=== PATIENT | male | born 1985 | race Caucasian/White ===

== ENCOUNTER 2018-12-13 07:04 | Emergency (ER) | payer OTHER ==
[~2018-12-13] VITALS: Ht 162.6 cm; Wt 80.0 kg
[~2018-12-13 07:04] MED LIST: FAMO-96 PO; HYDR-3605 PO; HYDR-4011 PO; ONDA4TAB14 PO; ONDA4TAB35 PO; PANT40TA3 PO
[2018-12-13 07:06] VITALS: Ht 162.6 cm; Wt 80.0 kg
[2018-12-13] MEDS ORDERED: ONDANSETRON 4 MG INJ IV STA ×2 (07:20→08:44)
[2018-12-13] MEDS ORDERED: KETOROLAC 30 MG INJ IV STA (07:20)
[2018-12-13] MEDS ORDERED: SOD CHLORIDE 0.9% 1,000 ML IV STA (07:20)
[2018-12-13] MEDS ORDERED: FAMOTIDINE 20 MG INJ IV STA (07:20)
[2018-12-13] MEDS ORDERED: morphine 4 MG/ML VIAL IV STA (07:20)
[2018-12-13] MEDS ORDERED: morphine 2 MG INJ IV STA (07:43)
[2018-12-13] MEDS ORDERED: SOD CHLORIDE 0.9% 100 ML ONE (08:14)
[2018-12-13] MEDS ORDERED: IOHEXOL 300MG/ML 150 ML BTL ONE (08:14)
[2018-12-13] MEDS ORDERED: DICYCLOMINE 10 MG CAP PO ONE (08:30)
[2018-12-13] MEDS ORDERED: HYDROmorphONE 2 MG/ML SYG IV STA (08:43)
[2018-12-13 09:48] VITALS: BP 115/64; PULSE 76; RESP 18
--- NOTE | 2018-12-13 10:49 | ERD ---
ER Documentation Chief Complaint Chief Complaint ap,vomiting seen at urgent care yesterday, dx gastritis HPI 33-year-old male presenting with abdominal pain and vomiting with severe abdominal pain x2 days. Patient has a long history of gastritis and states this feels like a similar flare but his pain is persistent and not resolving. Patient takes Zofran Protonix and omeprazole. He had normal urination and normal bowel movements with no bloody stool. Denies any allergies to medications. Medical history gastritis. Surgical history denies. Social history smokes marijuana ROS All systems reviewed and are negative except as per history of present illness. Medications Home Meds Active Scripts Famotidine* (Pepcid*) 20 Mg Tablet, 20 MG PO BID for 4 Days, #30 TAB Prov:BRYANNA HASKINS PA-C 12/13/18 Hydrocodone/Acetaminophen ([place] 5-325 Tablet) 1 Each Tablet, 1 TAB PO Q6H PRN for PAIN, #7 TAB Prov:BRYANNA HASKINS PA-C 12/13/18 Hydrocodone Bit/Acetaminophen (Anexsia 7.5/325 Mg Tablet) 1 Tab Tablet, 1 TAB PO Q6H PRN for PAIN LEVEL 4-6 for 1 Day, TAB Prov:BUD STROUD MD 10/13/15 Ondansetron Hcl* (Zofran* ODT) 4 mg -ODT Tab.disper, 4 MG PO Q6 PRN for NAUSEA AND/OR VOMITING, #30 TAB Prov:TUCKER CRUZ MD 01/07/15 Reported Medications Pantoprazole* (Protonix*) 40 Mg Tablet.dr, 40 MG PO DAILY, TAB 01/07/15 Allergies Allergies: Coded Allergies: No Known Allergy (Unverified , 01/07/15) PMhx/Soc Medical and Surgical Hx: pt denies Surgical Hx History of Surgery: No Anesthesia Reaction: No Hx Neurological Disorder: No Hx Respiratory Disorders: No Hx Cardiac Disorders: No Hx Psychiatric Problems: No Hx Miscellaneous Medical Probl: Yes (gastritis) Hx Alcohol Use: Yes Hx Substance Use: No Hx Tobacco Use: No Smoking Status: Never smoker FmHx Family History: No diabetes, No coronary disease, No other Physical Exam Vitals Vital Signs Date Temp Pulse Resp B/P (MAP) Pulse Ox O2 O2 Flow FiO2 Time Delivery Rate 12/13/18 98.1 76 18 115/64 98 Room Air 09:48 (81) 12/13/18 97.8 89 18 128/74 99 07:06 (92) Physical Exam GENERAL: The patient is well-appearing, well-nourished, in no acute distress HEENT: Atraumatic. Conjunctivae are pink. Pupils equal, round, and reactive to light. There is no scleral icterus. Tympanic membranes clear bilaterally. Oropharynx clear. CHEST: Clear to auscultation bilaterally. There are no rales, wheezes or rhonc hi. HEART: Regular rate and rhythm. No murmurs, clicks, rubs or gallops. ABDOMEN: Normal active bowel sounds. No distention. Generalized tenderness to palpation with no distention or organomegaly Result Diagram: 12/13/1835 12/13/18 0735 Results 24 hrs Laboratory Tests Test 12/13/18 07:35 White Blood Count 5.8 10^3/ul Red Blood Count 5.15 10^6/ul Hemoglobin 16.4 g/dl Hematocrit 48.7 % Mean Corpuscular Volume 94.6 fl Mean Corpuscular Hemoglobin 31.8 pg Mean Corpuscular Hemoglobin Concent 33.7 g/dl Red Cell Distribution Width 11.8 % Platelet Count 229 10^3/UL Mean Platelet Volume 9.9 fl Immature Granulocytes % 0.300 % Neutrophils % 51.1 % Lymphocytes % 30.7 % Monocytes % 9.5 % Eosinophils % 7.5 % Basophils % 0.9 % Nucleated Red Blood Cells % 0.0 /100WBC Immature Granulocytes # 0.020 10^3/ul Neutrophils # 3.0 10^3/ul Lymphocytes # 1.8 10^3/ul Monocytes # 0.6 10^3/ul Eosinophils # 0.4 10^3/ul Basophils # 0.1 10^3/ul Nucleated Red Blood Cells # 0.0 10^3/ul Sodium Level 140 mmol/L Potassium Level 4.0 mmol/L Chloride Level 102 mmol/L Carbon Dioxide Level 31 mmol/L Anion Gap 7 Blood Urea Nitrogen 15 mg/dl Creatinine 0.98 mg/dl Est Glomerular Filtrat Rate mL/min > 60 mL/min Glucose Level 112 mg/dl Calcium Level 10.0 mg/dl Total Bilirubin 0.6 mg/dl Direct Bilirubin 0.00 mg/dl Indirect Bilirubin 0.6 mg/dl Aspartate Amino Transf (AST/SGOT) 28 IU/L Alanine Aminotransferase (ALT/SGPT) 25 IU/L Alkaline Phosphatase 61 IU/L Total Protein 8.3 g/dl Albumin 4.9 g/dl Globulin 3.40 g/dl Albumin/Globulin Ratio 1.44 Lipase 418 U/L Current Medications Medications Dose Sig/Lino Start Time Status Last (Trade) Ordered Route PRN Stop Time Admin Dose Reason Admin Sodium 1,000 ml @ Q1H STAT 12/13/18 DC 12/13/18 Chloride 1,000 mls/hr IV 07:20 07:29 12/13/18 08:19 Morphine 4 mg ONCE STAT 12/13/18 DC 12/13/18 Sulfate IV 07:20 07:28 (morphine) 12/13/18 07:21 Ondansetron 4 mg ONCE STAT 12/13/18 DC 12/13/18 HCl (Zofran IV 07:20 07:28 Inj) 12/13/18 07:21 Famotidine 20 mg ONCE STAT 12/13/18 DC 12/13/18 (Pepcid Iv) IV 07:20 07:28 12/13/18 07:21 Ketorolac 30 mg ONCE STAT 12/13/18 DC 12/13/18 Tromethamine IV 07:20 07:28 (Toradol) 12/13/18 07:21 Morphine 2 mg ONCE STAT 12/13/18 DC 12/13/18 Sulfate IV 07:43 07:51 (morphine) 12/13/18 07:44 IV Flush 10 ml STK-MED 12/13/18 DC 12/13/18 (NS 10 ml) ONCE .ROUTE 08:14 08:30 12/13/18 08:15 Sodium 100 ml @ ud STK-MED 12/13/18 DC 12/13/18 Chloride ONCE .ROUTE 08:14 08:30 12/13/18 08:15 Iohexol 150 ml STK-MED 12/13/18 DC 12/13/18 (Omnipaque ONCE .ROUTE 08:14 08:30 300mg/ ml) 12/13/18 08:15 Dicyclomine 10 mg ONCE ONCE 12/13/18 DC 12/13/18 HCl PO 08:30 08:17 (Bentyl) 12/13/18 08:31 1 mg ONCE STAT 12/13/18 DC 12/13/18 Hydromorphone IV 08:43 08:48 HCl 12/13/18 08:44 (Dilaudid) Ondansetron 2 mg ONCE STAT 12/13/18 DC 12/13/18 HCl (Zofran IV 08:44 08:48 Inj) 12/13/18 08:45 Procedures/MDM DIAGNOSTIC IMAGING REPORT Patient: PEYMAN CHAWLA : 1985 Age: 33 Sex: M MR #: [id number] DOS: 12/13/18 0720 Ordering MD: JON HASKINS PA-C Location: [facility] Room/Bed: PROCEDURE: CT Abdomen and pelvis with contrast. CLINICAL INDICATION: Abdominal pain TECHNIQUE: CT scan of the abdomen and pelvis with contrast was performed on a multidetector high-resolution CT scan. The patient was scanned following the uncomplicated intravenous administration of 100 ml Omnipaque-300. Coronal and sagittal reformatted images were obtained from the axial source images. Standard CT of the abdomen pelvis with contrast protocols were performed. The total exam CTDI equals 14.51 mGy and the total exam DLP equals 939.61 mGy- cm. One or more of the following dose reduction techniques were used: - Automated exposure control. - Adjustment of the mA and/or kV according to patient size. Use of iterative reconstruction technique. Dicom images are available COMPARISON: CT abdomen pelvis 01/07/2015 and abdominal ultrasound same day FINDINGS: Stomach, small bowel, large bowel and appendix are unremarkable. Kidneys are normal in size without calcified calculi hydronephrosis or intra renal masses bilaterally. No ureteral calcified calculi or dilatation. Partially contracted otherwise unremarkable urinary bladder. Prostate unremarkable. No evidence of intra-abdominal free air, free fluid, abscesses or lymphadenopathy. Normal size liver with numerous small low density lesions the largest in the anterior superior right lobe measuring 8 mm consistent with cysts appear unchanged. No new hepatic lesions demonstrated. Splenic calcification consistent with old granulomatous disease. Spleen ot herwise unremarkable. Pancreas adrenal glands and gallbladder unremarkable. No evidence biliary ductal dilation. Lung bases unremarkable. Aorta unremarkable. Tiny left inguinal fat-containing hernia without herniated bowel or strangulation. Osseous structures unremarkable without acute osseous findings are osteoblastic/osteolytic lesions. IMPRESSION: 1. No gastrointestinal disease. 2. No calcified urinary calculi or obstructive uropathy. 3. Multiple hepatic cysts. 4. Tiny left inguinal fat-containing hernia without herniated bowel or strangulation. DIAGNOSTIC IMAGING REPORT Patient: PEYMAN CHAWLA : 1985 Age: 33 Sex: M MR #: [id number] DOS: 12/13/18 0720 Ordering MD: JON HASKINS PA-C Location: [facility] Room/Bed: PROCEDURE: US Abdomen. CLINICAL INDICATION: abdominal pain TECHNIQUE: Multiple real-time images were acquired of the patient's right upper quadrant abdomen and retroperitoneum utilizing a high resolution transducer. COMPARISON: 01/07/2015 FINDINGS: The study is limited due to the patient's inability to cooperate secondary to pain. The left lobe of the liver is not well seen due to overlying bowel gas. The liver demonstrates normal echogenicity. The liver is normal in size and no focal solid lesions are seen. The liver measures 15 cm in length. The portal vein is patent with normal direction of flow. No intrahepatic biliary dilat ation is seen. No gallstones are identified within the gallbladder. There is no pericholecystic fluid or gallbladder wall thickening. The common bile duct measures 5 mm in maximal dimension. The pancreas is not well seen due to overlying bowel gas. No free fluid is identified. The right kidney is normal in size, and demonstrate normal echogenicity and cortical thickness. The right kidney measures 9.4 cm in long dimension. There is no evidence of hydronephrosis. There are no kidney stones. RPTAT: AA IMPRESSION: Unremarkable right upper quadrant abdominal ultrasound. ER course: 6 mg morphine given in ED. 1 mg Dilaudid given in the ED. Patient monitored for period of time to make sure respiratory depression does not occur. Patient's pain is controlled. MDM: 33-year-old male presenting with abdominal pain. I have low suspicion for appendicitis, have low suspicion for pancreatitis, choledocholithiasis, cholangitis or cholecystitis. Patient has inflammation associated with gastritis causing him pain and pain is controlled in the ER. Patient is discharged with strict ER precautions. Patient is told symptoms change or worsen to return immediately to the ER. All questions answered at discharge Departure Diagnosis: Primary Impression: Abdominal pain Condition: Stable Patient Instructions: Abdominal Pain Referrals: COMM[facility] YOU HAVE RECEIVED A MEDICAL SCREENING EXAM AND THE RESULTS INDICATE THAT YOU DO NOT HAVE A CONDITION THAT REQUIRES URGENT TREATMENT IN THE EMERGENCY DEPARTMENT. FURTHER EVALUATION AND TREATMENT OF YOUR CONDITION CAN WAIT UNTIL YOU ARE SEEN IN YOUR DOCTORS OFFICE WITHIN THE NEXT 1-2 DAYS. IT IS YOUR RESPONSIBILITY TO MAKE AN APPOINTMENT FOR FOLOW-UP CARE. IF YOU HAVE A PRIMARY DOCTOR --you should call your primary doctor and schedule an appointment IF YOU DO NOT HAVE A PRIMARY DOCTOR YOU CAN CALL OUR PHYSICIAN REFERRAL HOTLINE AT IF YOU CAN NOT AFFORD TO SEE A PHYSICIAN YOU CAN CHOSE FROM THE FOLLOWING [facility] CLINICS [facility] [address] [facility] [address] [facility] [facility] [address] [facility] [address] [facility] [address] [facility]. [facility]. [address] Additional Instructions: FOLLOW UP WITH YOUR PRIMARY CARE PHYSICIAN TOMORROW.Return to this facility if you are not improving as expected. BRYANNA HASKINS PA-C Dec 13, 2018 10:48
== END 2018-12-13 09:49 | disposition home or self-care (01) ==
LOC: FTE 07:04
DX: R10.84 Generalized abdominal pain (principal)
CPT/HCPCS: 36415; 74177; 76705; 80053; 83690; 85025; 96361; 96374; 96375; 96376; J1170; J1885; J2270; J2405; J7030; Q9967; Z7502; Z7610

== ENCOUNTER 2018-12-17 16:35 | Emergency (ER) | payer OTHER ==
[~2018-12-17] VITALS: Ht 175.3 cm; Wt 74.8 kg
[2018-12-17 16:39] VITALS: Ht 175.3 cm; Wt 74.8 kg
[2018-12-17] MEDS ORDERED: ONDANSETRON (ODT) 4 MG TAB ODT STA (17:00)
[2018-12-17] MEDS ORDERED: LIDOCAINE/MYLANTA 40 ML BTL PO STA (17:00)
[2018-12-17] MEDS ORDERED: FAMOTIDINE 20 MG TAB PO STA (17:00)
[2018-12-17] MEDS ORDERED: KETOROLAC 30 MG INJ IM STA (17:00)
--- NOTE | 2018-12-17 17:12 | ERD ---
ER Documentation Chief Complaint Chief Complaint AP w/ vomiting x1 week, worse today. seen in ED 4 days ago for same HPI 33-year-old male with past medical history of gastritis who presents with complaint of epigastric abdominal pain and vomiting over the past 4 days. Has had a burning type pain localized to epigastric region, associated with several episodes of nonbilious nonbloody vomiting. Patient recently seen in this ED for similar complaints December 13 with unremarkable work-up including right upper quadrant ultrasound, CT scan of the abdomen and unremarkable labs. Patient states that his kitchen is under renovation and has been eating a lot of outside food and reports poor diet compliance. He has run out of pain medications as well as antiemetics but still has his omeprazole medication. He reports that he has had a EGD as well as colonoscopy approximately 1 to 2 years ago reports all studies as negative. ROS All systems reviewed and are negative except as per history of present illness. Medications Home Meds Active Scripts Hydrocodone/Acetaminophen ([place] 5-325 Tablet) 1 Each Tablet, 1 TAB PO Q6H PRN for PAIN, #7 TAB Prov:AUBREE SARAH PA-C 12/17/18 Ondansetron (Ondansetron Odt) 4 Mg Tab.rapdis, 4 MG PO Q6H PRN for NAUSEA AND/OR VOMITING, #10 TAB Prov:AUBREE SARAH PA-C 12/17/18 Famotidine* (Pepcid*) 20 Mg Tablet, 20 MG PO BID for 4 Days, #30 TAB Prov:BRYANNA HASKINS PA-C 12/13/18 Hydrocodone/Acetaminophen ([place] 5-325 Tablet) 1 Each Tablet, 1 TAB PO Q6H PRN for PAIN, #7 TAB Prov:BRYANAN HASKINS PA-C 12/13/18 Hydrocodone Bit/Acetaminophen (Anexsia 7.5/325 Mg Tablet) 1 Tab Tablet, 1 TAB PO Q6H PRN for PAIN LEVEL 4-6 for 1 Day, TAB Prov:BUD STROUD MD 10/13/15 Ondansetron Hcl* (Zofran* ODT) 4 mg -ODT Tab.disper, 4 MG PO Q6 PRN for NAUSEA AND/OR VOMITING, #30 TAB Prov:TUCKER CRUZ MD 01/07/15 Reported Medications Pantoprazole* (Protonix*) 40 Mg Tablet.dr, 40 MG PO DAILY, TAB 01/07/15 Allergies Allergies: Coded Allergies: No Known Allergy (Unverified , 01/07/15) PMhx/Soc History of Surgery: No Anesthesia Reaction: No Hx Neurological Disorder: No Hx Respiratory Disorders: No Hx Cardiac Disorders: No Hx Psychiatric Problems: No Hx Miscellaneous Medical Probl: Yes (gastritis) Hx Alcohol Use: Yes Hx Substance Use: No Hx Tobacco Use: No Smoking Status: Never smoker FmHx Family History: No diabetes, No coronary disease, No other Physical Exam Vitals Vital Signs Date Temp Pulse Resp B/P (MAP) Pulse Ox O2 O2 Flow FiO2 Time Delivery Rate 12/17/18 99.0 96 16 134/76 99 16:39 (95) Physical Exam I have reviewed the triage vital signs. Const: Well nourished, well developed, appears stated age Eyes: PERRL, no conjunctival injection HENT: NCAT, Neck supple without meningismus CV: RRR, Warm, well-perfused extremities RESP: CTAB, Unlabored respiratory effort GI: soft, tender to deep palpation to epigastric region, no right upper quadrant or left upper quadrant pain, no rebound or guarding, non-distended, no masses MSK: No gross deformities appreciated Skin: Warm, dry. No rashes Neuro: grossly non focal Psych: Appropriate mood and affect. Result Diagram: 12/17/18 1706 12/17/18 1709 Results 24 hrs Laboratory Tests Test 12/17/18 17:06 12/17/18 17:09 White Blood Count 7.9 10^3/ul Red Blood Count 4.98 10^6/ul Hemoglobin 16.0 g/dl Hematocrit 46.3 % Mean Corpuscular Volume 93.0 fl Mean Corpuscular Hemoglobin 32.1 pg Mean Corpuscular Hemoglobin Concent 34.6 g/dl Red Cell Distribution Width 11.9 % Platelet Count 229 10^3/UL Mean Platelet Volume 9.6 fl Immature Granulocytes % 0.400 % Neutrophils % 73.3 % Lymphocytes % 16.3 % Monocytes % 8.0 % Eosinophils % 1.5 % Basophils % 0.5 % Nucleated Red Blood Cells % 0.0 /100WBC Immature Granulocytes # 0.030 10^3/ul Neutrophils # 5.8 10^3/ul Lymphocytes # 1.3 10^3/ul Monocytes # 0.6 10^3/ul Eosinophils # 0.1 10^3/ul Basophils # 0.0 10^3/ul Nucleated Red Blood Cells # 0.0 10^3/ul Sodium Level 135 mmol/L Potassium Level 4.5 mmol/L Chloride Level 98 mmol/L Carbon Dioxide Level 26 mmol/L Anion Gap 11 Blood Urea Nitrogen 16 mg/dl Creatinine 1.10 mg/dl Est Glomerular Filtrat Rate mL/min > 60 mL/min Glucose Level 105 mg/dl Calcium Level 10.2 mg/dl Total Bilirubin 0.6 mg/dl Direct Bilirubin 0.00 mg/dl Indirect Bilirubin 0.6 mg/dl Aspartate Amino Transf (AST/SGOT) 26 IU/L Alanine Aminotransferase (ALT/SGPT) 30 IU/L Alkaline Phosphatase 44 IU/L Total Protein 8.5 g/dl Albumin 5.0 g/dl Globulin 3.50 g/dl Albumin/Globulin Ratio 1.42 Lipase 60 U/L Current Medications Medications Dose Sig/Lino Start Time Status Last (Trade) Ordered Route PRN Stop Time Admin Dose Reason Admin Famotidine 20 mg ONCE STAT 12/17/18 DC 12/17/18 (Pepcid) PO 17:00 17:05 12/17/18 17:02 40 ml ONCE STAT 12/17/18 DC 12/17/18 Miscellaneous PO 17:00 17:05 Medication 12/17/18 17:02 (Gi Cocktail (2)) Ketorolac 30 mg ONCE STAT 12/17/18 DC 12/17/18 Tromethamine IM 17:00 17:06 (Toradol) 12/17/18 17:02 Ondansetron 4 mg ONCE STAT 12/17/18 DC 12/17/18 HCl (Zofran ODT 17:00 17:05 Odt) 12/17/18 17:02 Sodium 1,000 ml @ Q1H ONCE 12/17/18 DC 12/17/18 Chloride 1,000 mls/hr IV 18:30 18:10 12/17/18 19:29 10 mg ONCE ONCE 12/17/18 DC 12/17/18 Metoclopramid IV 18:30 18:10 e HCl 12/17/18 18:31 (Reglan) 2 mg ONCE STAT 12/17/18 DC 12/17/18 Hydromorphone IV 18:17 18:35 HCl 12/17/18 18:18 (Dilaudid) Procedures/MDM This patient presents with abdominal pain of unclear etiology. Their evaluation has not identified a emergent etiology for the abdominal pain. Specifically, given the very benign exam, normal laboratory studies I have a very low suspicion for appendicitis, ischemic bowel, bowel perforation, or any other life threatening disease. He likely is suffering from a flare of gastritis given documented history of diet noncompliance. I suspect drug seeking component to patient's presentation. He has had a recent negative work-up including right upper quadrant ultrasound, CT of the abdomen and pelvis therefore given these recent negative studies and his exam will not repeat imaging at this time. Lipase noted to be 418 hence labs were repeated during this encounter. ED course: Labs unremarkable, lipase within normal limits Patient symptoms improved with fluids and pain medications Tolerating p.o., stable for discharge, strict return precautions explained in detail I have discussed with the patient the level of uncertainty with undifferentiated abdominal pain and clearly explained the need to follow-up as noted on the discharge instructions, or return to the Emergency Department immediately if the pain worsens, develops fever, persistent and uncontrollable vomiting, or for any new symptoms or concerns. I discussed with the patient that this presentation today for abdominal pain could represent a significant risk for an acute abdominal process. Although the tests in the ED were essentially normal, there is still a possibility of a process such as appendicitis, diverticulitis, cholecystitis, ulcer, early bowel obstruction, mesenteric ischemia, kidney stone, or even kidney infection which could subsequently cause disability or . Departure Diagnosis: Primary Impression: Abdominal pain Condition: Stable Patient Instructions: Gastritis (Adult) Referrals: COUNT INCLUDES THE [facility] YOU HAVE RECEIVED A MEDICAL SCREENING EXAM AND THE RESULTS INDICATE THAT YOU DO NOT HAVE A CONDITION THAT REQUIRES URGENT TREATMENT IN THE EMERGENCY DEPARTMENT. FURTHER EVALUATION AND TREATMENT OF YOUR CONDITION CAN WAIT UNTIL YOU ARE SEEN IN YOUR DOCTORS OFFICE WITHIN THE NEXT 1-2 DAYS. IT IS YOUR RESPONSIBILITY TO MAKE AN APPOINTMENT FOR FOLOW-UP CARE. IF YOU HAVE A PRIMARY DOCTOR --you should call your primary doctor and schedule an appointment IF YOU DO NOT HAVE A PRIMARY DOCTOR YOU CAN CALL OUR PHYSICIAN REFERRAL HOTLINE AT IF YOU CAN NOT AFFORD TO SEE A PHYSICIAN YOU CAN CHOSE FROM THE FOLLOWING [facility] CLINICS [facility] [address] [facility]. [facility] [address] [facility] [facility] [address] [facility] [address] [facility] [address] [facility]. [facility] [address] Additional Instructions: Call your primary care doctor TOMORROW for an appointment during the next 2-3 days.See the doctor sooner or return here if your condition worsens before your appointment time. AUBREE SARAH PA-C Dec 17, 2018 17:12
[2018-12-17] MEDS ORDERED: HYDROmorphONE 2 MG/ML SYG IV STA (18:17)
[2018-12-17] MEDS ORDERED: SOD CHLORIDE 0.9% 1,000 ML IV ONE (18:30)
[2018-12-17] MEDS ORDERED: METOCLOPRAMIDE 10 MG INJ IV ONE (18:30)
[2018-12-17 20:05] VITALS: BP 103/61; PULSE 71; RESP 20
== END 2018-12-17 20:06 | disposition home or self-care (01) ==
LOC: FTE 16:35
DX: R10.13 Epigastric pain (principal); R11.10 Vomiting, unspecified
CPT/HCPCS: 36415; 80053; 83690; 85025; 96361; 96372; 96374; 96375; J1170; J1885; J2765; J7030; Z7502; Z7610